=== PATIENT | female | born 1980 | race Hispanic/Latino ===

== ENCOUNTER 2020-03-13 01:31 | Emergency (ER) | payer SELFPAY ==
[2020-03-13 02:17] LABS: #Eosinphils 0.2 thou/uL (0.0-0.7); #Lymphocytes 2.2 thou/uL (1.20-3.40); #Monocytes 0.7 thou/uL (0.11-0.59); #Neutrophils 5.5 thou/uL (1.40-6.50); %Basophils 0.2 % (0.0-1.0); %Eosinophils 2.2 % (0.0-10.0); %Lymphocytes 25.7 % (21.0-51.0); %Monocytes 7.9 % (0.0-10.0); Hemoglobin 10.5 g/dL (12.0-16.0); Mean Corpuscular HGB CONC 32.2 g/dL (32.0-36.0); Mean Corpuscular Hemoglobin 25.6 pg (27.0-31.0); Mean Corpuscular Volume 79.5 fL (78.0-98.0); Mean Platelet Volume 8.6 fL (7.4-10.4); Platelet Count 272 thou/uL (130-400); RBC Distribution Width 13.8 % (11.5-14.5); Red Blood Cell (RBC) Count 4.11 mill/uL (4.20-5.40); White Blood Cell (WBC) Count 8.6 thou/uL (4.8-10.8)
[2020-03-13] MEDS ORDERED: Ondansetron PF 4 MG/2 ML Vial ONE (02:26)
[2020-03-13 02:34] LABS: BHCG - Serum Negative (NEGATIVE); Pregs Control Background? CLEAR/WHITE (CLR/WHITE); Pregs Control Bar Appear? YES (CONTROL BAR)
[2020-03-13 02:43] LABS: ALT (SGPT) 20 U/L (8-55); AST (SGOT) 34 U/L (5-34); Albumin 3.9 g/dL (3.5-5.0); Alkaline Phosphatase 85 U/L (40-110); Anion Gap 14 mmol/L (10-20); BUN (Urea Nitrogen) 10 mg/dL (7.0-18.7); Bilirubin, Total Less than 0.2 mg/dL (0.2-1.2); Calc. Creatinine Clearance 0 mL/min (70-130); Calcium 8.6 mg/dL (7.8-10.44); Carbon Dioxide 19 mmol/L (22-29); Chloride 107 mmol/L (98-107); Estimated GFR-MDRD 90; Globulin 3.3 g/dL (2.4-3.5); Glucose 105 mg/dL (70-105); Potassium 3.4 mmol/L (3.5-5.1); Protein, Total 7.2 g/dL (6.0-8.3); Sodium 137 mmol/L (136-145)
--- NOTE | 2020-03-13 08:03 | ULT ---
PRELIMINARY REPORT/[facility]/EMERGENCY AFTER HOURS PROCEDURE Right upper quadrant ultrasound: Comparison: None Indication: HX: ABD PAIN, N/V. SEE NOTES ON LAST IMAGE. THANKS Findings: Gallbladder: The gallbladder appears to be collapsed around gallstones and is suboptimally visualized . There may be borderline gallbladder wall thickening to 3 mm. Sonographic Trotter sign reported posit fede. No surrounding free fluid. No free fluid. Bile ducts:The common bile duct measures a maximum of 4 mm. No right-sided hydronephrosis. The liver is normal. Visualized portions of the inferior vena ca va are normal. Impression: Cholelithiasis. The gallbladder is poorly visualized. Positive sonographic Trotter sign is suggestive of early cholecystitis. HIDA scan could be considered to confirm if clinically indicated. ELECTRONICALLY SIGNED BY: Gopal Adame MD March 13, 2020 2:53:29 AM CDT FINAL REPORT I agree with the preliminary report given by Dr. Gopal Adame of [facility]. POS: [facility]
--- NOTE | 2020-03-13 08:27 | RAD ---
PORTABLE CHEST 1 VIEW: DATE: 03/13/2020. TIME: 1:31 AM. HISTORY: Chest pain. COMPARISON: 12/01/2005. FINDINGS: The heart size is borderline. No focal areas of consolidation, pneumothoraces, jean-paul pulmonary edema , or pleural effusions are seen. IMPRESSION: No acute process. POS: [facility]
== END 2020-03-13 05:42 | disposition home or self-care (01) ==
LOC: ERS 01:31
DX: K80.20 Calculus of gallbladder without cholecystitis without obstruction (principal); R07.89 Other chest pain; I10 Essential (primary) hypertension
CPT/HCPCS: 36415; 71045; 76705; 80053; 84484; 84703; 85025; 93005; 96374; J2405

== ENCOUNTER 2020-03-14 21:38 | Emergency (ER) | payer SELFPAY ==
[~2020-03-14 21:38] MED LIST: Iopamidol-370 76% 500 ML 1 ML ONE
[2020-03-14] MEDS ORDERED: Ketorolac Tromethamine 30 MG/ML VIAL ONE (22:08)
[2020-03-14 22:21] LABS: #Eosinphils 0.2 thou/uL (0.0-0.7); #Lymphocytes 2.7 thou/uL (1.20-3.40); #Monocytes 0.7 thou/uL (0.11-0.59); #Neutrophils 3.9 thou/uL (1.40-6.50); %Basophils 0.5 % (0.0-1.0); %Eosinophils 3.1 % (0.0-10.0); %Lymphocytes 35.9 % (21.0-51.0); %Monocytes 9.2 % (0.0-10.0); %Neutrophils 51.4 % (42.0-75.0); Mean Corpuscular HGB CONC 32.3 g/dL (32.0-36.0); Mean Corpuscular Hemoglobin 25.7 pg (27.0-31.0); Mean Corpuscular Volume 79.8 fL (78.0-98.0); Mean Platelet Volume 8.4 fL (7.4-10.4); Platelet Count 287 thou/uL (130-400); RBC Distribution Width 13.9 % (11.5-14.5); Red Blood Cell (RBC) Count 4.28 mill/uL (4.20-5.40); White Blood Cell (WBC) Count 7.5 thou/uL (4.8-10.8)
[2020-03-14 22:39] LABS: ALT (SGPT) 23 U/L (8-55); AST (SGOT) 26 U/L (5-34); Albumin 3.8 g/dL (3.5-5.0); Alkaline Phosphatase 89 U/L (40-110); Anion Gap 12 mmol/L (10-20); BUN (Urea Nitrogen) 10 mg/dL (7.0-18.7); Bilirubin, Total Less than 0.2 mg/dL (0.2-1.2); Calc. Creatinine Clearance 0 mL/min (70-130); Calcium 9.2 mg/dL (7.8-10.44); Carbon Dioxide 23 mmol/L (22-29); Chloride 105 mmol/L (98-107); Estimated GFR-MDRD 88; Globulin 3.1 g/dL (2.4-3.5); Glucose 96 mg/dL (70-105); Potassium 3.4 mmol/L (3.5-5.1); Protein, Total 6.9 g/dL (6.0-8.3); Sodium 137 mmol/L (136-145)
[2020-03-14 22:44] LABS: BHCG - Serum Negative (NEGATIVE); Pregs Control Background? CLEAR/WHITE (CLR/WHITE); Pregs Control Bar Appear? YES (CONTROL BAR)
--- NOTE | 2020-03-15 06:27 | CT ---
CTA AORTIC DISSECTION PROTOCOL UTILIZING IV CONRAST AND 3D REFORMATTED IMAGIN03/14/20 COMPARISON: Noncontrast CT of the abdomen and pelvis dated 04/19/16. FINDINGS: There are areas of subsegmental volume loss involving both lower lobes. No consolidation, pleural eff usion or pneumothorax evident. No acute aortic stenosis, occlusion or aneurysmal formation is evident. No enlarged lymph nodes are evident in the mediastinum, hilar, or axillary regions. No definite central pulmonary embolus is evident. There are numerous gallstones filling the gallbladder. The liver, spleen, pancreas, and adrenal glands appear within normal limits. The kidneys are normal a ppearing. The visualized aspects of the unopacified large and small bowel appear within normal limits. No definite acute osseous abnormality is evident. IMPRESSION: 1. No acute aortic stenosis, occlusion or aneurysmal formation. 2. Cholelithiasis. POS: BH
--- NOTE | 2020-03-18 15:20 | EKG ---
Test Reason : Blood Pressure : / mmHG Vent. Rate : 085 BPM Atrial Rate : 085 BPM P-R Int : 154 ms QRS Dur : 074 ms QT Int : 362 ms P-R-T Axes : 027 078 011 degrees QTc Int : 430 ms Normal sinus rhythm Normal ECG Confirmed by CINDI ARBOLEDA DO ([id number]), videotape editor ELIZABETH MIGUEL ([id number]) on 03/18/2020 3:20:11 PM Referred By: Confirmed By:CINDI ARBOLEDA DO
== END 2020-03-14 22:58 | disposition home or self-care (01) ==
LOC: ERS 21:38
DX: R07.89 Other chest pain (principal); I10 Essential (primary) hypertension
CPT/HCPCS: 36415; 71275; 72191; 74175; 80053; 84484; 84703; 85025; 93005; 96361; 96374; J1885; Q9967